=== PATIENT | male | born 1975 | race Caucasian/White ===

== ENCOUNTER 2020-02-18 16:05 | Inpatient (IN) | payer OTHER ==
[2020-02-18] MEDS ORDERED: FUROSEMIDE 40 MG/4 ML INJECTABLE VIAL IVPUSH ONE (20:26)
[2020-02-18] MEDS ORDERED: FUROSEMIDE 40 MG/4 ML INJECTABLE VIAL ONE (21:22)
[2020-02-18 21:32] LABS: HEMATOCRIT 37.7 % (35.4-49); HEMOGLOBIN 12.4 GM/dL (11.7-16.9); MCH 28.7 pg (25.7-33.7); MCHC 32.8 g/dl (32.0-35.9); MEAN CELL VOLUME 87.5 fl (80-96); PLATELET COUNT 298 K/MM3 (134-434); RBC 4.31 M/mm3 (4.00-5.60); RDW 15.1 % (11.9-15.9); WHITE BLOOD COUNT 8.8 K/mm3 (4.0-10.0)
[2020-02-18 21:46] LABS: CHLORIDE 107 mmol/L (98-107); POTASSIUM 4.4 mmol/L (3.5-5.1); SODIUM 139 mmol/L (136-145)
[2020-02-18 21:48] LABS: ALBUMIN 3.4 g/dl (3.4-5.0); CALCIUM 8.9 mg/dL (8.5-10.1)
[2020-02-18 21:49] LABS: ANION GAP 7 MMOL/L (8-16); CO2 25 mmol/L (21-32); GLUCOSE,RANDOM 90 mg/dL (74-106)
[2020-02-18 21:52] LABS: SGOT/AST 13 U/L (15-37); SGPT/ALT 23 U/L (13-61)
[2020-02-18 21:54] LABS: BILIRUBIN,TOTAL 0.4 mg/dL (0.2-1); TOT PROT 7.4 g/dl (6.4-8.2)
[2020-02-18 21:55] LABS: ALK PHOS 121 U/L (45-117)
[2020-02-18 21:57] LABS: N-TERMINAL BNP 453.1 pg/ml (5-125)
[2020-02-19 02:22] LABS: EPI CELLS 14 /uL (0-25.1); HYALINE CASTS 2 /uL (0-3.1); URINE APPEARANCE CLEAR; URINE BACTERIA 5 /uL (0-1359); URINE BILIRUBIN NEGATIVE (NEGATIVE); URINE COLOR YELLOW; URINE GLUCOSE (UA) NEGATIVE (NEGATIVE); URINE KETONE NEGATIVE (NEGATIVE); URINE LEUK ESTERASE NEGATIVE (NEGATIVE); URINE NITRITE NEGATIVE (NEGATIVE); URINE PROTEIN 3+ (NEGATIVE); URINE RBC 7 /uL (0-23.9); URINE UROBILINOGEN 0.2 mg/dL (0.2-1.0); URINE WBC 3 /uL (0-25.8)
[2020-02-19 06:09] LABS: HEMATOCRIT 36.7 % (35.4-49); HEMOGLOBIN 11.9 GM/dL (11.7-16.9); MCH 28.7 pg (25.7-33.7); MCHC 32.4 g/dl (32.0-35.9); MEAN CELL VOLUME 88.4 fl (80-96); PLATELET COUNT 286 K/MM3 (134-434); RBC 4.15 M/mm3 (4.00-5.60); RDW 15.2 % (11.9-15.9); WHITE BLOOD COUNT 9.4 K/mm3 (4.0-10.0)
[2020-02-19 06:25] LABS: POTASSIUM 4.2 mmol/L (3.5-5.1)
[2020-02-19 06:26] LABS: INR 1.12 (0.83-1.09); PROTHROMBIN TIME (PATIENT) 13.7 SEC (9.7-13.0)
[2020-02-19 06:27] LABS: CALCIUM 8.8 mg/dL (8.5-10.1)
[2020-02-19 06:28] LABS: ALBUMIN 3.4 g/dl (3.4-5.0); BLOOD UREA NITROGEN 42.4 mg/dL (7-18); MAGNESIUM 2.4 mg/dL (1.8-2.4)
[2020-02-19 06:29] LABS: ACTIVATED PTT 28.8 SECONDS (25.2-36.5)
[2020-02-19 06:31] LABS: CREATININE 3.2 mg/dL (0.55-1.3); PHOSPHOROUS 4.3 mg/dL (2.5-4.9)
[2020-02-19 06:32] LABS: BILIRUBIN,TOTAL 0.4 mg/dL (0.2-1); CHOLESTEROL 148 mg/dL (50-200); TOT PROT 7.3 g/dl (6.4-8.2); TRIGLYCERIDES 174 mg/dL (0-150)
[2020-02-19 06:33] LABS: HDL CHOLESTEROL 43 mg/dL (40-60); LDL CHOLESTEROL (ONLY SJRH) 89 mg/dL (5-100)
[2020-02-19] MEDS: FUROSEMIDE 40 MG/4 ML INJECTABLE VIAL IVPUSH SCH ×2 (06:51→15:26)
[2020-02-19] MEDS: LEVOTHYROXINE NA 25 MCG TABLET (FP) PO SCH (06:51)
[2020-02-19] MEDS ORDERED: LEVOTHYROXINE NA 25 MCG TABLET (FP) PO SCH (07:00)
[2020-02-19] MEDS: ASPIRIN 81 MG CHEWABLE TABLETS PO SCH (10:48)
[2020-02-19] MEDS: CARVEDILOL 25 MG TABLET (FP) PO SCH ×2 (10:48→21:17)
[2020-02-19] MEDS: LISINOPRIL 10 MG TABLET PO SCH (10:48)
[2020-02-19 15:24] VITALS: BMI 90.4
[2020-02-19] MEDS: ACETAMINOPHEN 325 MG TABLET (FP) PO PRN (15:26)
[2020-02-19] MEDS: HEPARIN NA (PORCINE) 5,000 UNITS/ML 1ML VIAL SQ SCH ×2 (15:27→21:16)
[2020-02-19] MEDS: ATORVASTATIN CA 80 MG TABLET (FP) PO SCH (21:17)
[2020-02-20] MEDS: HEPARIN NA (PORCINE) 5,000 UNITS/ML 1ML VIAL SQ SCH ×3 (06:10→22:13)
[2020-02-20] MEDS: FUROSEMIDE 40 MG/4 ML INJECTABLE VIAL IVPUSH SCH ×2 (06:11→14:59)
[2020-02-20] MEDS: LEVOTHYROXINE NA 25 MCG TABLET (FP) PO SCH (06:11)
[2020-02-20] MEDS: ACETAMINOPHEN 325 MG TABLET (FP) PO PRN ×2 (06:11→22:17)
[2020-02-20] MEDS: CARVEDILOL 25 MG TABLET (FP) PO SCH ×2 (09:32→22:13)
[2020-02-20] MEDS: ASPIRIN 81 MG CHEWABLE TABLETS PO SCH (09:32)
[2020-02-20] MEDS: LISINOPRIL 10 MG TABLET PO SCH (09:32)
[2020-02-20 10:39] LABS: BASO % 0.5 % (0-2.0); EOS % 3.6 % (0-4.5); HEMATOCRIT 35.8 % (35.4-49); HEMOGLOBIN 11.8 GM/dL (11.7-16.9); LYMPH % 20.1 % (8-40); MCH 29.2 pg (25.7-33.7); MEAN CELL VOLUME 88.3 fl (80-96); MONO % 7.3 % (3.8-10.2); NEUT % 68.5 % (42.8-82.8); PLATELET COUNT 250 K/MM3 (134-434); RBC 4.06 M/mm3 (4.00-5.60); RDW 14.9 % (11.9-15.9); WHITE BLOOD COUNT 5.9 K/mm3 (4.0-10.0)
[2020-02-20 11:02] LABS: POTASSIUM 3.7 mmol/L (3.5-5.1)
[2020-02-20 11:04] LABS: BLOOD UREA NITROGEN 42.7 mg/dL (7-18); CALCIUM 8.4 mg/dL (8.5-10.1)
[2020-02-20 11:07] LABS: CREATININE 3.1 mg/dL (0.55-1.3)
[2020-02-20 11:09] LABS: BILIRUBIN,TOTAL 0.4 mg/dL (0.2-1)
[2020-02-20] MEDS: LIDOCAINE 5% TOPICAL PATCH TP SCH (12:22)
[2020-02-20] MEDS ORDERED: LIDOCAINE PATCH REMOVAL MC SCH (22:00)
[2020-02-20] MEDS: ATORVASTATIN CA 80 MG TABLET (FP) PO SCH (22:13)
[2020-02-21] MEDS: HEPARIN NA (PORCINE) 5,000 UNITS/ML 1ML VIAL SQ SCH (06:03)
[2020-02-21] MEDS: FUROSEMIDE 40 MG/4 ML INJECTABLE VIAL IVPUSH SCH (06:03)
[2020-02-21] MEDS: LEVOTHYROXINE NA 25 MCG TABLET (FP) PO SCH (06:04)
[2020-02-21 08:51] LABS: BASO % 0.6 % (0-2.0); EOS % 4.2 % (0-4.5); HEMATOCRIT 39.2 % (35.4-49); HEMOGLOBIN 13.1 GM/dL (11.7-16.9); LYMPH % 21.6 % (8-40); MCH 29.6 pg (25.7-33.7); MCHC 33.5 g/dl (32.0-35.9); MEAN CELL VOLUME 88.5 fl (80-96); MEAN PLT VOLUME 7.5 fl (7.5-11.1); MONO % 7.5 % (3.8-10.2); NEUT % 66.1 % (42.8-82.8); PLATELET COUNT 277 K/MM3 (134-434); RBC 4.43 M/mm3 (4.00-5.60); WHITE BLOOD COUNT 6.5 K/mm3 (4.0-10.0)
[2020-02-21] MEDS: ASPIRIN 81 MG CHEWABLE TABLETS PO SCH (09:15)
[2020-02-21] MEDS: CARVEDILOL 25 MG TABLET (FP) PO SCH (09:16)
[2020-02-21] MEDS: LIDOCAINE 5% TOPICAL PATCH TP SCH (09:16)
[2020-02-21] MEDS: LISINOPRIL 10 MG TABLET PO SCH (09:18)
[2020-02-21 10:34] LABS: POTASSIUM 3.8 mmol/L (3.5-5.1)
[2020-02-21 10:39] LABS: CALCIUM 9.1 mg/dL (8.5-10.1)
[2020-02-21 10:40] LABS: ALBUMIN 3.6 g/dl (3.4-5.0); BLOOD UREA NITROGEN 41.7 mg/dL (7-18)
[2020-02-21 10:43] LABS: CREATININE 3.1 mg/dL (0.55-1.3)
[2020-02-21 10:44] LABS: TOT PROT 8.1 g/dl (6.4-8.2)
[2020-02-21 15:30] VITALS: BP 146/84; PULSE 76; TEMP 98
== END 2020-02-21 15:33 | disposition home or self-care (01) | DRG 291 ==
LOC: JER 16:05 → JERBED 22:05 → J5S 02-19 06:16
PROVIDERS: ADMIT Internal Medicine
DX: I13.0 Hypertensive heart and chronic kidney disease with heart failure and stage 1 through stage 4 chronic kidney disease, or unspecified chronic kidney disease (principal); I50.33 Acute on chronic diastolic (congestive) heart failure; Z68.45 Body mass index [BMI] 70 or greater, adult; E11.22 Type 2 diabetes mellitus with diabetic chronic kidney disease; N18.30 Chronic kidney disease, stage 3 unspecified; E66.01 Morbid (severe) obesity due to excess calories; E03.9 Hypothyroidism, unspecified; E78.5 Hyperlipidemia, unspecified; Z79.84 Long term (current) use of oral hypoglycemic drugs; F79 Unspecified intellectual disabilities; Z86.73 Personal history of transient ischemic attack (TIA), and cerebral infarction without residual deficits; M54.5 Low back pain; G47.33 Obstructive sleep apnea (adult) (pediatric); R94.31 Abnormal electrocardiogram [ECG] [EKG]
CPT/HCPCS: 36415; 71045-TC-FY; 76775-TC; 80053; 80061; 81003; 82550; 82565; 82962; 83036; 83721; 83735; 83880; 84100; 84156; 84300; 84443; 84484; 85025; 85027; 85610; 85730; 93005; 93010; 93306-TC; 93970-TC; 94660; 97116-GP; 97162-GP; 99285-25; C9803; J1644; U0003

== ENCOUNTER 2020-02-24 16:36 | Inpatient (IN) | payer OTHER ==
[2020-02-24] MEDS ORDERED: FUROSEMIDE 40 MG/4 ML INJECTABLE VIAL IVPUSH ONE (17:22)
[2020-02-24] MEDS ORDERED: ACETAMINOPHEN 500 MG TABLET (FP) PO ONE (17:22)
[2020-02-24] MEDS ORDERED: FUROSEMIDE 40 MG/4 ML INJECTABLE VIAL ONE (18:43)
[2020-02-24] MEDS ORDERED: CYCLOBENZAPRINE HCL 10 MG TABLET (FP) ONE ×2 (18:43→18:47)
[2020-02-24] MEDS ORDERED: ACETAMINOPHEN 325 MG TABLET (FP) ONE (18:43)
[2020-02-24] MEDS ORDERED: CYCLOBENZAPRINE HCL 10 MG TABLET (FP) PO ONE (19:05)
[2020-02-24 19:39] LABS: BASO % 0.5 % (0-2.0); HEMATOCRIT 35.5 % (35.4-49); HEMOGLOBIN 11.6 GM/dL (11.7-16.9); LYMPH % 20.2 % (8-40); MCH 28.8 pg (25.7-33.7); MCHC 32.7 g/dl (32.0-35.9); MEAN CELL VOLUME 88.2 fl (80-96); MEAN PLT VOLUME 7.5 fl (7.5-11.1); MONO % 7.8 % (3.8-10.2); NEUT % 67.5 % (42.8-82.8); PLATELET COUNT 282 K/MM3 (134-434); RBC 4.03 M/mm3 (4.00-5.60); RDW 15.1 % (11.9-15.9); WHITE BLOOD COUNT 8.4 K/mm3 (4.0-10.0)
[2020-02-24 19:47] LABS: EPI CELLS 4 /uL (0-25.1); HYALINE CASTS 0 /uL (0-3.1); PH,URINE 6.5 (5.0-8.0); URINE APPEARANCE CLEAR; URINE BACTERIA 6 /uL (0-1359); URINE BILIRUBIN NEGATIVE (NEGATIVE); URINE COLOR YELLOW; URINE GLUCOSE (UA) NEGATIVE (NEGATIVE); URINE KETONE NEGATIVE (NEGATIVE); URINE LEUK ESTERASE NEGATIVE (NEGATIVE); URINE NITRITE NEGATIVE (NEGATIVE); URINE PROTEIN 3+ (NEGATIVE); URINE RBC 6 /uL (0-23.9); URINE UROBILINOGEN 0.2 mg/dL (0.2-1.0); URINE WBC 3 /uL (0-25.8)
[2020-02-24 19:58] LABS: CHLORIDE 107 mmol/L (98-107); POTASSIUM 4.1 mmol/L (3.5-5.1); SODIUM 141 mmol/L (136-145)
[2020-02-24 20:00] LABS: ALBUMIN 3.2 g/dl (3.4-5.0); ANION GAP 8 MMOL/L (8-16); BLOOD UREA NITROGEN 48.3 mg/dL (7-18); CALCIUM 8.7 mg/dL (8.5-10.1); CO2 26 mmol/L (21-32); GLUCOSE,RANDOM 109 mg/dL (74-106); MAGNESIUM 2.3 mg/dL (1.8-2.4)
[2020-02-24 20:03] LABS: CREATININE 3.1 mg/dL (0.55-1.3); SGOT/AST 12 U/L (15-37); SGPT/ALT 21 U/L (13-61)
[2020-02-24 20:05] LABS: BILIRUBIN,TOTAL 0.3 mg/dL (0.2-1); TOT PROT 7.2 g/dl (6.4-8.2)
[2020-02-24 20:06] LABS: ALK PHOS 110 U/L (45-117)
[2020-02-24 20:09] LABS: N-TERMINAL BNP 475.3 pg/ml (5-125)
[2020-02-25] MEDS ORDERED: TAMSULOSIN HCL 0.4 MG CAP PO ONE (00:10)
[2020-02-25] MEDS ORDERED: FUROSEMIDE 40 MG/4 ML INJECTABLE VIAL ONE ×2 (01:26→01:37)
[2020-02-25] MEDS ORDERED: TAMSULOSIN HCL 0.4 MG CAP ONE (01:40)
[2020-02-25] MEDS: FUROSEMIDE 100 MG/10 ML INJECTABLE VIAL IVPB SCH ×2 (01:40→07:34)
[2020-02-25] MEDS ORDERED: HEPARIN NA (PORCINE) 5,000 UNITS/ML 1ML VIAL SQ SCH (06:00)
[2020-02-25 06:07] VITALS: BMI 70.9
[2020-02-25] MEDS ORDERED: LEVOTHYROXINE NA 50 MCG TABLET (FP) PO SCH (07:00)
[2020-02-25] MEDS: INSULIN SLIDING SCALE (NOVOLOG) 1 VIAL SQ SCH ×2 (07:34→12:06)
[2020-02-25 08:04] LABS: HEMATOCRIT 37.6 % (35.4-49); HEMOGLOBIN 12.1 GM/dL (11.7-16.9); MCH 28.3 pg (25.7-33.7); MCHC 32.2 g/dl (32.0-35.9); MEAN CELL VOLUME 88.1 fl (80-96); MEAN PLT VOLUME 7.4 fl (7.5-11.1); PLATELET COUNT 276 K/MM3 (134-434); RBC 4.27 M/mm3 (4.00-5.60); RDW 15.4 % (11.9-15.9); WHITE BLOOD COUNT 7.5 K/mm3 (4.0-10.0)
[2020-02-25 08:34] LABS: POTASSIUM 3.6 mmol/L (3.5-5.1)
[2020-02-25 08:52] LABS: ALBUMIN 3.3 g/dl (3.4-5.0)
[2020-02-25 08:53] LABS: CALCIUM 9.1 mg/dL (8.5-10.1); MAGNESIUM 2.4 mg/dL (1.8-2.4)
[2020-02-25 08:54] LABS: BILIRUBIN,TOTAL 0.4 mg/dL (0.2-1); TOT PROT 7.6 g/dl (6.4-8.2)
[2020-02-25 08:56] LABS: PHOSPHOROUS 4.2 mg/dL (2.5-4.9)
[2020-02-25] MEDS ORDERED: traMADol HCL 50 MG TABLET PO PRN (09:11)
[2020-02-25] MEDS: LIDOCAINE 5% TOPICAL PATCH TP SCH ×2 (09:34→09:35)
[2020-02-25] MEDS ORDERED: ASPIRIN 81 MG CHEWABLE TABLETS PO SCH (10:00)
[2020-02-25 10:36] VITALS: BP 139/85; PULSE 76; TEMP 97.5
[2020-02-25] MEDS ORDERED: CYCLOBENZAPRINE HCL 5 MG TABLET PO ONE (17:22)
[2020-02-25] MEDS ORDERED: LIDOCAINE PATCH REMOVAL MC SCH ×2 (22:00)
[2020-02-25] MEDS ORDERED: ATORVASTATIN CA 80 MG TABLET (FP) PO SCH (22:00)
[2020-02-26] MEDS ORDERED: LEVOTHYROXINE NA 25 MCG TABLET (FP) PO SCH (07:00)
== END 2020-02-25 14:13 | disposition home health service (06) | DRG 641 ==
LOC: JER 16:36 → JERBED 21:57 → J4W 02-25 05:21
PROVIDERS: ADMIT Internal Medicine; ATTEND Student in an Organized Health Care Education/Training Program
DX: E87.70 Fluid overload, unspecified (principal); I50.32 Chronic diastolic (congestive) heart failure; I13.0 Hypertensive heart and chronic kidney disease with heart failure and stage 1 through stage 4 chronic kidney disease, or unspecified chronic kidney disease; Z68.45 Body mass index [BMI] 70 or greater, adult; M54.5 Low back pain; E66.01 Morbid (severe) obesity due to excess calories; N18.30 Chronic kidney disease, stage 3 unspecified; R00.0 Tachycardia, unspecified; E11.9 Type 2 diabetes mellitus without complications; E78.5 Hyperlipidemia, unspecified; E03.9 Hypothyroidism, unspecified; G47.33 Obstructive sleep apnea (adult) (pediatric)
CPT/HCPCS: 36415; 71046-TC-FY; 74176-TC; 80053; 81003; 82550; 82962; 83735; 83880; 84100; 84443; 84484; 85025; 85027; 93005; 93010; 94660; 97116-GP; 97161-GP; 99285-25; C9803; J1644; U0003

== ENCOUNTER 2020-07-25 15:51 | Inpatient (IN) | payer OTHER ==
[2020-07-25] MEDS ORDERED: NITROGLYCERIN 2% OINTMENT - 1GM PACKET TD ONE ×2 (16:07→16:09)
[2020-07-25] MEDS ORDERED: NITROGLYCERIN 50MG/D5W 250ML 50 MG/250 ML ML IVPB SCH (16:15)
[2020-07-25] MEDS ORDERED: FUROSEMIDE 40 MG/4 ML INJECTABLE VIAL IVPUSH ONE (16:17)
[2020-07-25] MEDS ORDERED: FUROSEMIDE 40 MG/4 ML INJECTABLE VIAL ONE (16:43)
[2020-07-25] MEDS ORDERED: NITROGLYCERIN 25MG/D5W 250ML 25 MG/250 ML ML IVPB ONE (16:43)
[2020-07-25 17:10] LABS: INR 1.22 (0.83-1.09); PROTHROMBIN TIME (PATIENT) 14.9 SEC (9.7-13.0)
[2020-07-25 17:11] LABS: BASO % 0.5 % (0-2.0); EOS % 3.8 % (0-4.5); HEMATOCRIT 33.4 % (35.4-49); HEMOGLOBIN 11.1 GM/dL (11.7-16.9); MCH 29.4 pg (25.7-33.7); MCHC 33.1 g/dl (32.0-35.9); MEAN CELL VOLUME 88.6 fl (80-96); MEAN PLT VOLUME 7.3 fl (7.5-11.1); MONO % 7.7 % (3.8-10.2); PLATELET COUNT 317 K/MM3 (134-434); RBC 3.77 M/mm3 (4.00-5.60); RDW 14.8 % (11.9-15.9); WHITE BLOOD COUNT 8.7 K/mm3 (4.0-10.0)
[2020-07-25 17:13] LABS: ACTIVATED PTT 33.1 SECONDS (25.2-36.5)
[2020-07-25 17:22] LABS: CHLORIDE 111 mmol/L (98-107); SODIUM 141 mmol/L (136-145)
[2020-07-25 17:24] LABS: CALCIUM 8.8 mg/dL (8.5-10.1)
[2020-07-25 17:25] LABS: ALBUMIN 3.9 g/dl (3.4-5.0); ANION GAP 8 MMOL/L (8-16); CO2 23 mmol/L (21-32); GLUCOSE,RANDOM 91 mg/dL (74-106)
[2020-07-25 17:28] LABS: CREATININE 3.7 mg/dL (0.55-1.3); SGOT/AST 12 U/L (15-37); SGPT/ALT 18 U/L (13-61)
[2020-07-25 17:30] LABS: BILIRUBIN,TOTAL 0.4 mg/dL (0.2-1); TOT PROT 8.4 g/dl (6.4-8.2)
[2020-07-25 17:31] LABS: ALK PHOS 127 U/L (45-117)
[2020-07-25 17:32] LABS: BILIRUBIN,DIRECT 0.1 mg/dL (0.0-0.2)
[2020-07-25 17:33] LABS: N-TERMINAL BNP 1686.4 pg/ml (5-125)
[2020-07-25 19:47] LABS: EPI CELLS 7 /uL (0-25.1); HYALINE CASTS 1 /uL (0-3.1); URINE APPEARANCE CLEAR; URINE BACTERIA 116 /uL (0-1359); URINE BILIRUBIN NEGATIVE (NEGATIVE); URINE COLOR YELLOW; URINE GLUCOSE (UA) NEGATIVE (NEGATIVE); URINE KETONE NEGATIVE (NEGATIVE); URINE LEUK ESTERASE NEGATIVE (NEGATIVE); URINE NITRITE NEGATIVE (NEGATIVE); URINE PROTEIN 3+ (NEGATIVE); URINE RBC 4 /uL (0-23.9); URINE UROBILINOGEN 0.2 mg/dL (0.2-1.0); URINE WBC 4 /uL (0-25.8)
[2020-07-26 01:16] VITALS: BMI 72.0
[2020-07-26] MEDS: FUROSEMIDE 40 MG/4 ML INJECTABLE VIAL IVPUSH SCH ×2 (06:44→15:08)
[2020-07-26] MEDS ORDERED: LEVOTHYROXINE NA 25 MCG TABLET (FP) PO SCH (07:00)
[2020-07-26] MEDS ORDERED: Insulin (LOG) Aspart 100 UNITS/ML VIAL SQ PRN (08:36)
[2020-07-26] MEDS ORDERED: INSULIN SLIDING SCALE (NOVOLOG) 1 VIAL SQ PRN (08:45)
[2020-07-26 09:53] LABS: BASO % 0.5 % (0-2.0); HEMATOCRIT 30.2 % (35.4-49); HEMOGLOBIN 10.1 GM/dL (11.7-16.9); LYMPH % 11.6 % (8-40); MCH 29.3 pg (25.7-33.7); MCHC 33.5 g/dl (32.0-35.9); MEAN CELL VOLUME 87.5 fl (80-96); MONO % 6.5 % (3.8-10.2); NEUT % 78.4 % (42.8-82.8); PLATELET COUNT 279 K/MM3 (134-434); RBC 3.46 M/mm3 (4.00-5.60); RDW 15.1 % (11.9-15.9); WHITE BLOOD COUNT 7.9 K/mm3 (4.0-10.0)
[2020-07-26 10:15] LABS: ALBUMIN 3.5 g/dl (3.4-5.0); BLOOD UREA NITROGEN 50.7 mg/dL (7-18); CALCIUM 8.7 mg/dL (8.5-10.1); MAGNESIUM 2.6 mg/dL (1.8-2.4)
[2020-07-26 10:18] LABS: CREATININE 3.8 mg/dL (0.55-1.3)
[2020-07-26 10:20] LABS: BILIRUBIN,TOTAL 0.4 mg/dL (0.2-1); TOT PROT 7.6 g/dl (6.4-8.2)
[2020-07-26] MEDS: CARVEDILOL 25 MG TABLET (FP) PO SCH ×2 (10:28→21:24)
[2020-07-26] MEDS: ASPIRIN 81 MG CHEWABLE TABLETS PO SCH (10:29)
[2020-07-26] MEDS: NIFEdipine E.R 60 MG TABLET PO SCH (10:29)
[2020-07-26] MEDS: LIDOCAINE 5% TOPICAL PATCH TP SCH (10:29)
[2020-07-26 12:45] LABS: ARTERIAL BLOOD GAS BASE EXCESS -3.5 mmol/L (-2-2); ARTERIAL BLOOD GAS PO2 81.7 mmHg (80-100)
[2020-07-26] MEDS: ATORVASTATIN CA 40 MG TABLET (FP) PO SCH (21:24)
[2020-07-26] MEDS: LIDOCAINE PATCH REMOVAL MC SCH (21:30)
[2020-07-27] MEDS: FUROSEMIDE 40 MG/4 ML INJECTABLE VIAL IVPUSH SCH ×2 (06:50→13:53)
[2020-07-27] MEDS: LEVOTHYROXINE NA 25 MCG TABLET (FP) PO SCH (06:50)
[2020-07-27] MEDS ORDERED: PT OWN MED DRAWER 7, Y5N ONE (07:48)
[2020-07-27 08:25] LABS: CALCIUM 8.4 mg/dL (8.5-10.1)
[2020-07-27 08:26] LABS: BLOOD UREA NITROGEN 50.5 mg/dL (7-18)
[2020-07-27 08:29] LABS: CREATININE 3.5 mg/dL (0.55-1.3)
[2020-07-27] MEDS: NIFEdipine E.R 60 MG TABLET PO SCH (09:00)
[2020-07-27] MEDS: CARVEDILOL 25 MG TABLET (FP) PO SCH ×2 (09:00→21:46)
[2020-07-27] MEDS: ASPIRIN 81 MG CHEWABLE TABLETS PO SCH (09:00)
[2020-07-27] MEDS: LIDOCAINE 5% TOPICAL PATCH TP SCH (09:01)
[2020-07-27] MEDS: NIFEdipine E.R. 30 MG TABLET PO SCH (11:28)
[2020-07-27] MEDS: LIDOCAINE PATCH REMOVAL MC SCH (21:46)
[2020-07-27] MEDS: ATORVASTATIN CA 40 MG TABLET (FP) PO SCH (21:46)
[2020-07-28] MEDS: LEVOTHYROXINE NA 25 MCG TABLET (FP) PO SCH (06:05)
[2020-07-28] MEDS: FUROSEMIDE 40 MG/4 ML INJECTABLE VIAL IVPUSH SCH ×2 (06:05→14:31)
[2020-07-28 07:32] LABS: CALCIUM 8.6 mg/dL (8.5-10.1)
[2020-07-28 07:33] LABS: BLOOD UREA NITROGEN 55.9 mg/dL (7-18)
[2020-07-28 07:36] LABS: CREATININE 3.6 mg/dL (0.55-1.3)
[2020-07-28] MEDS: CARVEDILOL 25 MG TABLET (FP) PO SCH ×2 (09:10→22:08)
[2020-07-28] MEDS: ASPIRIN 81 MG CHEWABLE TABLETS PO SCH (09:10)
[2020-07-28] MEDS: NIFEdipine E.R. 30 MG TABLET PO SCH (09:10)
[2020-07-28] MEDS: ENOXAPARIN NA (PORCINE) 30 MG/0.3 ML DISP.SYRIN SQ SCH (09:10)
[2020-07-28] MEDS: LIDOCAINE 5% TOPICAL PATCH TP SCH (09:11)
[2020-07-28] MEDS ORDERED: METOLAZONE 2.5 MG TABLET (FP) PO ONE (15:46)
[2020-07-28] MEDS ORDERED: FUROSEMIDE 40 MG/4 ML INJECTABLE VIAL IVPUSH ONE (15:46)
[2020-07-28] MEDS ORDERED: ACETAMINOPHEN 325 MG TABLET (FP) ONE (21:52)
[2020-07-28] MEDS: LIDOCAINE PATCH REMOVAL MC SCH (21:53)
[2020-07-28] MEDS: ATORVASTATIN CA 40 MG TABLET (FP) PO SCH (22:08)
[2020-07-28] MEDS: ACETAMINOPHEN 325 MG TABLET (FP) PO PRN (22:08)
[2020-07-29] MEDS: FUROSEMIDE 40 MG/4 ML INJECTABLE VIAL IVPUSH SCH ×2 (06:03→14:09)
[2020-07-29] MEDS: LEVOTHYROXINE NA 50 MCG TABLET (FP) PO SCH (06:03)
[2020-07-29] MEDS ORDERED: LEVOTHYROXINE NA 50 MCG TABLET (FP) PO SCH (07:00)
[2020-07-29 07:20] LABS: CALCIUM 8.4 mg/dL (8.5-10.1)
[2020-07-29 07:21] LABS: ALBUMIN 3.7 g/dl (3.4-5.0); BLOOD UREA NITROGEN 58.1 mg/dL (7-18)
[2020-07-29 07:24] LABS: CREATININE 3.6 mg/dL (0.55-1.3)
[2020-07-29 07:25] LABS: BILIRUBIN,TOTAL 0.5 mg/dL (0.2-1)
[2020-07-29] MEDS: ASPIRIN 81 MG CHEWABLE TABLETS PO SCH (09:40)
[2020-07-29] MEDS: NIFEdipine E.R. 30 MG TABLET PO SCH (09:40)
[2020-07-29] MEDS: CARVEDILOL 25 MG TABLET (FP) PO SCH ×2 (09:40→21:18)
[2020-07-29] MEDS: LIDOCAINE 5% TOPICAL PATCH TP SCH (09:41)
[2020-07-29] MEDS: ENOXAPARIN NA (PORCINE) 30 MG/0.3 ML DISP.SYRIN SQ SCH (09:41)
[2020-07-29] MEDS: LIDOCAINE PATCH REMOVAL MC SCH (21:18)
[2020-07-29] MEDS: ATORVASTATIN CA 40 MG TABLET (FP) PO SCH (21:18)
[2020-07-30] MEDS: FUROSEMIDE 40 MG/4 ML INJECTABLE VIAL IVPUSH SCH ×2 (05:46→13:15)
[2020-07-30] MEDS: LEVOTHYROXINE NA 50 MCG TABLET (FP) PO SCH (06:08)
[2020-07-30] MEDS: ASPIRIN 81 MG CHEWABLE TABLETS PO SCH (08:59)
[2020-07-30] MEDS: ENOXAPARIN NA (PORCINE) 30 MG/0.3 ML DISP.SYRIN SQ SCH (08:59)
[2020-07-30] MEDS: LIDOCAINE 5% TOPICAL PATCH TP SCH (08:59)
[2020-07-30] MEDS: CARVEDILOL 25 MG TABLET (FP) PO SCH ×2 (08:59→21:08)
[2020-07-30] MEDS: NIFEdipine E.R. 30 MG TABLET PO SCH (09:00)
[2020-07-30] MEDS: ACETAMINOPHEN 325 MG TABLET (FP) PO PRN ×2 (09:03→18:20)
[2020-07-30 09:59] LABS: BLOOD UREA NITROGEN 57.8 mg/dL (7-18); CALCIUM 9.2 mg/dL (8.5-10.1); MAGNESIUM 2.4 mg/dL (1.8-2.4)
[2020-07-30 10:03] LABS: CREATININE 3.5 mg/dL (0.55-1.3)
[2020-07-30] MEDS: ATORVASTATIN CA 40 MG TABLET (FP) PO SCH (21:08)
[2020-07-30] MEDS: LIDOCAINE PATCH REMOVAL MC SCH (21:09)
[2020-07-31] MEDS: FUROSEMIDE 40 MG/4 ML INJECTABLE VIAL IVPUSH SCH ×2 (06:13→13:55)
[2020-07-31] MEDS: LEVOTHYROXINE NA 50 MCG TABLET (FP) PO SCH (06:14)
[2020-07-31] MEDS: ASPIRIN 81 MG CHEWABLE TABLETS PO SCH (09:17)
[2020-07-31] MEDS: NIFEdipine E.R. 30 MG TABLET PO SCH (09:17)
[2020-07-31] MEDS: ENOXAPARIN NA (PORCINE) 30 MG/0.3 ML DISP.SYRIN SQ SCH (09:17)
[2020-07-31] MEDS: CARVEDILOL 25 MG TABLET (FP) PO SCH ×2 (09:17→21:06)
[2020-07-31] MEDS: LIDOCAINE 5% TOPICAL PATCH TP SCH (09:18)
[2020-07-31 11:17] LABS: BLOOD UREA NITROGEN 62.9 mg/dL (7-18); CALCIUM 9.4 mg/dL (8.5-10.1); CREATININE 3.6 mg/dL (0.55-1.3); MAGNESIUM 2.5 mg/dL (1.8-2.4); PHOSPHOROUS 4.3 mg/dL (2.5-4.9)
[2020-07-31] MEDS ORDERED: POTASSIUM CHLORIDE TABS 20 MEQ TABLET.ER (FP) PO ONE (11:37)
[2020-07-31] MEDS: ACETAMINOPHEN 325 MG TABLET (FP) PO PRN (12:08)
[2020-07-31] MEDS: ATORVASTATIN CA 40 MG TABLET (FP) PO SCH (21:06)
[2020-07-31] MEDS: LIDOCAINE PATCH REMOVAL MC SCH (21:08)
[2020-08-01] MEDS: LEVOTHYROXINE NA 25 MCG TABLET (FP) PO SCH (06:15)
[2020-08-01] MEDS: FUROSEMIDE 40 MG/4 ML INJECTABLE VIAL IVPUSH SCH ×2 (06:15→14:28)
[2020-08-01 07:50] LABS: CALCIUM 8.9 mg/dL (8.5-10.1)
[2020-08-01 07:52] LABS: BLOOD UREA NITROGEN 69.5 mg/dL (7-18); MAGNESIUM 2.4 mg/dL (1.8-2.4)
[2020-08-01 07:55] LABS: CREATININE 3.8 mg/dL (0.55-1.3)
[2020-08-01] MEDS: ENOXAPARIN NA (PORCINE) 30 MG/0.3 ML DISP.SYRIN SQ SCH (09:07)
[2020-08-01] MEDS: NIFEdipine E.R. 30 MG TABLET PO SCH (09:08)
[2020-08-01] MEDS: CARVEDILOL 25 MG TABLET (FP) PO SCH ×2 (09:08→21:23)
[2020-08-01] MEDS: ASPIRIN 81 MG CHEWABLE TABLETS PO SCH (09:08)
[2020-08-01] MEDS: LIDOCAINE 5% TOPICAL PATCH TP SCH (09:10)
[2020-08-01] MEDS: LIDOCAINE PATCH REMOVAL MC SCH (21:23)
[2020-08-01] MEDS: ATORVASTATIN CA 40 MG TABLET (FP) PO SCH (21:24)
[2020-08-02] MEDS: FUROSEMIDE 40 MG/4 ML INJECTABLE VIAL IVPUSH SCH (05:41)
[2020-08-02] MEDS: LEVOTHYROXINE NA 25 MCG TABLET (FP) PO SCH (06:04)
[2020-08-02 09:32] LABS: CALCIUM 9.2 mg/dL (8.5-10.1)
[2020-08-02 09:34] LABS: BLOOD UREA NITROGEN 70.6 mg/dL (7-18)
[2020-08-02 09:36] LABS: CREATININE 3.8 mg/dL (0.55-1.3)
[2020-08-02] MEDS: ENOXAPARIN NA (PORCINE) 30 MG/0.3 ML DISP.SYRIN SQ SCH (09:56)
[2020-08-02] MEDS: LIDOCAINE 5% TOPICAL PATCH TP SCH (09:56)
[2020-08-02] MEDS: CARVEDILOL 25 MG TABLET (FP) PO SCH (09:56)
[2020-08-02] MEDS: ASPIRIN 81 MG CHEWABLE TABLETS PO SCH (09:56)
[2020-08-02] MEDS ORDERED: FUROSEMIDE 40 MG TABLET (FP) PO SCH (14:00)
[2020-08-02 15:19] VITALS: BP 136/77; PULSE 73; TEMP 98.4
== END 2020-08-02 17:11 | disposition home health service (06) | DRG 291 ==
LOC: JER 15:51 → JERBED 16:18 → J4W 07-26
PROVIDERS: ADMIT Internal Medicine; ATTEND Internal Medicine
DX: I13.0 Hypertensive heart and chronic kidney disease with heart failure and stage 1 through stage 4 chronic kidney disease, or unspecified chronic kidney disease (principal); I50.33 Acute on chronic diastolic (congestive) heart failure; Z68.45 Body mass index [BMI] 70 or greater, adult; N17.9 Acute kidney failure, unspecified; E66.2 Morbid (severe) obesity with alveolar hypoventilation; N18.4 Chronic kidney disease, stage 4 (severe); E11.22 Type 2 diabetes mellitus with diabetic chronic kidney disease; G47.33 Obstructive sleep apnea (adult) (pediatric); E03.9 Hypothyroidism, unspecified; E87.70 Fluid overload, unspecified; E78.5 Hyperlipidemia, unspecified
CPT/HCPCS: 36415; 36600; 71045-TC-FY; 80048; 80053; 81003; 82248; 82550; 82728; 82803; 82962; 83605; 83615; 83735; 83880; 84100; 84439; 84443; 84484; 85025; 85379; 85610; 85730; 86140; 87040; 87086; 93005; 93010; 94660; 94761; 97116-GP; 97162-GP; 99291; C9803; U0003; U0005